=== PATIENT | male | born 1995 | race African-American/Black ===

== ENCOUNTER 2022-05-15 15:28 | Emergency (ER) | payer OTHER ==
[~2022-05-15] VITALS: Ht 177.8 cm; Wt 81.8 kg
[2022-05-15 15:30] VITALS: BP 139/78
[2022-05-15] MEDS ORDERED: IBUPROFEN 800 MG TAB PO ONE (16:45)
== END 2022-05-15 17:50 | disposition home or self-care (01) ==
LOC: M ED 15:28
DX: S86.002A Unspecified injury of left Achilles tendon, initial encounter (principal); F10.10 Alcohol abuse, uncomplicated; Y92.410 Unspecified street and highway as the place of occurrence of the external cause; Y93.02 Activity, running; Y99.9 Unspecified external cause status